=== PATIENT | male | born 1980 | race Caucasian/White ===

== ENCOUNTER 2024-08-25 16:56 | Inpatient (IN) | payer OTHER ==
[2024-08-25 17:27] VITALS: BMI 34.7
[2024-08-25] MEDS ORDERED: BENZONATATE 200 MG CAPSULE PO PRN (18:58)
[2024-08-25] MEDS ORDERED: LOPERAMIDE HCL 2 MG CAPSULE PO PRN (18:58)
[2024-08-25] MEDS ORDERED: P-EPHED 60MG/TRIPROLIDI 2.5MG TABLET PO PRN (18:58)
[2024-08-25] MEDS ORDERED: IBUPROFEN 400 MG TABLET (FP) PO PRN (18:58)
[2024-08-25] MEDS ORDERED: NALOXONE (NARCAN) HCL 4 MG/0.1 ML SPRAY NS PRN (18:58)
[2024-08-25] MEDS ORDERED: POLYETHYLENE GLYCOL (HEALTHYLAX) 3350 17 GM PACKET PO PRN (18:58)
[2024-08-25] MEDS ORDERED: BENZOCAINE/MENTHOL (CHLORASEPTIC ) LOZENGE MM PRN (18:58)
[2024-08-25] MEDS ORDERED: guaiFENesin 600 MG TABLET.ER (FP) PO PRN (18:58)
[2024-08-25] MEDS ORDERED: MAGNESIUM HYDROX 2400MG/30ML ORAL SUSPENSION 30 ML CUP PO PRN (18:58)
[2024-08-25] MEDS: TUBERCULIN PPD 5 TU/0.1ML SYRINGE (IN PATIENT USE ONLY) ID ONE (22:30)
[2024-08-25] MEDS: THIAMINE 100 MG TABLET PO SCH (22:30)
[2024-08-25] MEDS: MELATONIN 5 MG TABLETS PO SCH (22:30)
[2024-08-26] MEDS: PRENATAL VITAMINS W/ FOLIC ACID TABLET (FP) PO SCH (09:32)
[2024-08-26 11:26] LABS: HEMATOCRIT 42.4 % (40.1-51.0); HEMOGLOBIN 13.7 g/dL (13.7-17.5); MCHC 32.3 g/dl (32.3-36.5); MEAN CELL VOLUME 89.6 fl (79.0-92.2); MEAN PLT VOLUME 11.7 fl (9.4-12.4); PLATELET COUNT 323 x10^3/uL (163-337); RDW 13.2 % (12.1-15.9)
[2024-08-26 12:44] LABS: SYPHILIS W/ RPR CONF NON-REACTIVE (NONREACTIVE)
[2024-08-26 13:13] LABS: HCV DIAGNOSTIC IN-HOUSE W/RFLX NON-REACTIVE (NONREACTIVE)
[2024-08-26 14:42] LABS: POTASSIUM 4.1 mmol/L (3.5-5.1)
[2024-08-26 16:21] LABS: ALBUMIN 3.3 g/dl (3.4-5.0); BILIRUBIN,TOTAL 0.4 mg/dL (0.2-1); BLOOD UREA NITROGEN 14.7 mg/dL (7-18); CALCIUM 8.8 mg/dL (8.5-10.1); CREATININE 0.8 mg/dL (0.55-1.3); TOT PROT 6.5 g/dl (6.4-8.2)
[2024-08-27] MEDS: ARIPiprazole 5 MG TABLET PO SCH (10:07)
[2024-08-27 11:50] LABS: URINE APPEARANCE CLEAR; URINE BILIRUBIN NEGATIVE (NEGATIVE); URINE COLOR YELLOW; URINE GLUCOSE (UA) NEGATIVE (NEGATIVE); URINE KETONE TRACE (NEGATIVE); URINE LEUK ESTERASE NEGATIVE (NEGATIVE); URINE NITRITE NEGATIVE (NEGATIVE); URINE PROTEIN NEGATIVE (NEGATIVE); URINE UROBILINOGEN 0.2 mg/dL (0.2-1.0)
[2024-08-29] MEDS: MAG HYDROX/AL HYDROX/SIMETH 30 ML UNIT-DOSE CUP PO PRN (21:11)
[2024-09-13] MEDS: ACETAMINOPHEN 325 MG TABLET (FP) PO PRN (13:00)
[2024-09-14] MEDS: MELATONIN 5 MG TABLETS PO SCH (21:08)
[2024-09-19 05:29] VITALS: RESP 16
[2024-09-21 05:48] VITALS: BP 124/93; PULSE 85; TEMP 97.3
== END 2024-09-21 09:45 | disposition home or self-care (01) | DRG 772 ==
LOC: YASAS 16:56 → Y3NR 20:27 → Y3W 08-26 18:19
PROVIDERS: ADMIT Psychiatry & Neurology Pain Medicine; ATTEND Psychiatry & Neurology Pain Medicine
PROC: HZ42ZZZ Group Counseling for Substance Abuse Treatment, Cognitive-Behavioral (ICD-10-PCS; principal; 2024-08-25)
DX: F14.20 Cocaine dependence, uncomplicated (principal); F31.81 Bipolar II disorder; Z87.891 Personal history of nicotine dependence; Z91.81 History of falling; Z59.01 Sheltered homelessness
CPT/HCPCS: 36415; 80053; 81003; 82962; 85027; 86780; 86803; 87811; 93005; 93010